=== PATIENT | female | born 1960 | race African-American/Black ===

== ENCOUNTER 2019-05-07 20:34 | Inpatient (IN) | payer MEDICAID, OTHER ==
[~2019-05-07] VITALS: Ht 167.6 cm; Wt 132.2 kg
[2019-05-07 21:59] LABS: CHLORIDE 103 mEq/L (98-107)
[2019-05-07] MEDS ORDERED: CEFTRIAXONE 1 G PREMIX 50 ML IV NR (23:00)
[2019-05-07] MEDS ORDERED: AZITHROMYCIN 500 MG in DEXT 5% WATER 250 ML IV NR (23:00)
[2019-05-07 23:58] LABS: EOSINOPHILS % 0.8 % (0.0-5.0); HEMATOCRIT. 50.1 % (36.0-48.0); HEMOGLOBIN. 14.7 g/dL (12.0-16.0); LYMPHOCYTES % 24.4 % (20.0-50.0); MEAN CORPUSCULAR HEMOGLOBIN 24.1 pg (28.0-32.0); MEAN CORPUSCULAR VOLUME 82.2 fL (81.0-99.0); MEAN PLATELET VOLUME 9.8 fl (7.4-10.4); MONOCYTES % 11.8 % (2.0-8.0); PLATELET 115 x1000/uL (130-400)
[2019-05-08 00:45] VITALS: BP 149/81
[2019-05-08] MEDS ORDERED: FURO-152 PO (01:15)
[2019-05-08] MEDS ORDERED: DEXTROSE 50% WATER 50ML SYRINGE IV PRN (02:15)
[2019-05-08 04:00] VITALS: BP 152/85
[2019-05-08 06:22] LABS: CHLORIDE 103 mEq/L (98-107)
[2019-05-08] MEDS: INSULIN LISPRO 100 UNITS/ML SUBCUT SCH ×4 (06:42→21:00)
[2019-05-08] MEDS: BLOOD SUGAR DIAGNOSTIC STRIP TEST SCH ×4 (06:42→21:14)
[2019-05-08 08:00] VITALS: BP 157/85
[2019-05-08] MEDS ORDERED: FUROSEMIDE 40MG/4ML VIAL IVP SCH (09:00)
[2019-05-08] MEDS ORDERED: FUROSEMIDE 40MG TABLET PO SCH (09:00)
[2019-05-08] MEDS ORDERED: AMLODIPINE 10MG TABLET PO SCH (09:00)
[2019-05-08] MEDS: ENOXAPARIN 30MG/0.3ML SYR SUBCUT SCH ×2 (09:31→21:14)
[2019-05-08] MEDS: LOSARTAN POTASSIUM 50 MG TABLET PO SCH (09:31)
[2019-05-08 11:45] VITALS: BP 148/79
[2019-05-08] MEDS: DILTIAZEM HCL 60MG TABLET PO SCH ×2 (11:49→17:19)
[2019-05-08 16:00] VITALS: BP 140/71
[2019-05-08] MEDS: FUROSEMIDE 40MG/4ML VIAL IVP SCH (18:17)
[2019-05-08 20:00] VITALS: BP 139/76
[2019-05-08] MEDS ORDERED: AZITHROMYCIN 500 MG in DEXT 5% WATER 250 ML IV SCH (22:00)
[2019-05-08 22:09] LABS: *AMPHETAMINES SCREEN URINE NEGATIVE (NEGATIVE); *BARBITURATES SCREEN URINE NEGATIVE (NEGATIVE); *BENZODIAZEPINES SCREEN URINE NEGATIVE (NEGATIVE); *COCAINE SCREEN URINE NEGATIVE (NEGATIVE); METHADONE URINE SCREEN NEGATIVE (NEGATIVE)
[2019-05-08 22:11] LABS: CANNABINOID URINE SCREEN NEGATIVE (NEGATIVE); OPIATES URINE SCREEN NEGATIVE (NEGATIVE); PHENCYCLIDINE URINE SCREEN NEGATIVE (NEGATIVE)
[2019-05-08] MEDS ORDERED: CEFTRIAXONE 1 G PREMIX 50 ML IV SCH (23:00)
[2019-05-09] VITALS: BP 139/63
[2019-05-09] MEDS: DILTIAZEM HCL 60MG TABLET PO SCH ×3 (00:14→13:05)
[2019-05-09 04:00] VITALS: BP 149/77
[2019-05-09] MEDS: INSULIN LISPRO 100 UNITS/ML SUBCUT SCH ×2 (06:22→12:15)
[2019-05-09] MEDS: BLOOD SUGAR DIAGNOSTIC STRIP TEST SCH ×2 (06:22→11:45)
[2019-05-09] MEDS: FUROSEMIDE 40MG/4ML VIAL IVP SCH (06:40)
[2019-05-09 06:58] LABS: BASOPHILS % 0.4 % (0.0-2.0); EOSINOPHILS % 0.5 % (0.0-5.0); HEMATOCRIT. 52.2 % (36.0-48.0); HEMOGLOBIN. 14.9 g/dL (12.0-16.0); LYMPHOCYTES % 12.2 % (20.0-50.0); MEAN CORPUSCULAR HEMOGLOBIN 23.8 pg (28.0-32.0); MEAN CORPUSCULAR VOLUME 83.2 fL (81.0-99.0); MEAN PLATELET VOLUME 9.7 fl (7.4-10.4); MONOCYTES % 8.7 % (2.0-8.0); NEUTROPHILS % 78.2 % (40.0-76.0); PLATELET 140 x1000/uL (130-400); RED BLOOD CELL COUNT 6.27 mill/uL (4.2-5.4); RED CELL DISTRIBUTION WIDTH 20.4 % (11.6-14.6)
[2019-05-09 07:10] LABS: CHLORIDE 99 mEq/L (98-107)
[2019-05-09 08:00] VITALS: BP 146/67
[2019-05-09] MEDS: LOSARTAN POTASSIUM 50 MG TABLET PO SCH (09:29)
[2019-05-09] MEDS: ENOXAPARIN 30MG/0.3ML SYR SUBCUT SCH (09:30)
[2019-05-09] MEDS ORDERED: IPRATROPIUM/ALBUTEROL 0.5-3(2.5)MG/3ML NEB HHN PRN (10:45)
[2019-05-09] MEDS ORDERED: ALBU18HF2 IH (11:14)
[2019-05-09] MEDS ORDERED: FURO-151 MT (11:14)
[2019-05-09] MEDS ORDERED: POTA20TA82 MT (11:14)
[2019-05-09] MEDS ORDERED: HYDR-4135 MT (11:14)
[2019-05-09] MEDS ORDERED: LOSA50TA41 MT (11:14)
[2019-05-09 11:41] VITALS: BP 133/70
[2019-05-09 13:35] LABS: T4 FREE 0.96 ng/dL (0.76-1.46)
[2019-05-09 14:04] VITALS: BP 133/70
== END 2019-05-09 15:15 | disposition home or self-care (01) | DRG 194 ==
LOC: ER 20:34 → EDBEDREQTM 23:29 → EDBEDREQ 23:29 → ENRESERV 05-08 00:04 → 5WST 05-08 00:38
PROVIDERS: ADMIT Internal Medicine; ATTEND Internal Medicine
DX: I11.0 Hypertensive heart disease with heart failure (principal); J96.00 Acute respiratory failure, unspecified whether with hypoxia or hypercapnia; E44.0 Moderate protein-calorie malnutrition; I50.33 Acute on chronic diastolic (congestive) heart failure; E66.9 Obesity, unspecified; Z68.42 Body mass index [BMI] 45.0-49.9, adult; G47.33 Obstructive sleep apnea (adult) (pediatric); E11.9 Type 2 diabetes mellitus without complications
CPT/HCPCS: 36415; 71045; 80048; 80053; 80061; 80305; 82962; 83036; 83605; 83880; 84439; 84443; 84481; 84484; 85025; 93005; 93306; 99285; J0456; J0696; J1650; J1940; J7060